=== PATIENT | female | born 1950 | race Caucasian/White ===

== ENCOUNTER 2016-09-20 07:13 | Day surgery (SDC) | payer OTHER, MEDICAID ==
[2016-09-20] MEDS ORDERED: D5 LR 1000 ML 1,000 ML IV ONE (07:20)
[2016-09-20] MEDS ORDERED: DIPRIVAN VIAL 20 ML ONE (09:16)
[2016-09-20 10:02] VITALS: BP 147/77
== END 2016-09-20 10:06 | disposition home or self-care (01) ==
LOC: SURG1 07:13
PROVIDERS: ATTEND Internal Medicine Gastroenterology
PROC: 0DJD8ZZ Inspection of Lower Intestinal Tract, Via Natural or Artificial Opening Endoscopic (ICD-10-PCS; principal; 2016-09-20 08:30)
PROC: 0DBL8ZX Excision of Transverse Colon, Via Natural or Artificial Opening Endoscopic, Diagnostic (ICD-10-PCS; principal; 2016-09-20 08:30)
DX: Z12.11 Encounter for screening for malignant neoplasm of colon (principal); R19.4 Change in bowel habit; K64.8 Other hemorrhoids; K57.30 Diverticulosis of large intestine without perforation or abscess without bleeding; K63.5 Polyp of colon; D12.3 Benign neoplasm of transverse colon
CPT/HCPCS: A4217; J3490; J7120

== ENCOUNTER → 2016-12-21 | Outpatient (CLI) | payer OTHER, MEDICAID ==
[2016-12-27 07:16] LABS: MAGNESIUM RBC 2.2 mmol/L (1.5-3.1)
== END ==
LOC: LAB 11:44
PROVIDERS: ATTEND Obstetrics & Gynecology Obstetrics
DX: M62.838 Other muscle spasm (principal)
CPT/HCPCS: 36415; 82330; 82728; 83735

== ENCOUNTER → 2016-12-25 | Outpatient (CLI) | payer OTHER, MEDICAID ==
--- NOTE | 2016-12-25 13:16 | MG ---
HISTORY: SCREENING Comparison: December 06, 2015 FINDINGS: Bilateral CC and MLO projections of the right and left breast were obtained. Scattered fibroglandul ar tissue is seen to be present. No significant architectural distortion, mass or clustered microca lcifications can be observed to suggest malignancy. No skin thickening or nipple retraction is appr eciated. No pathological lymphadenopathy can be identified. Benign-appearing calcifications scatte red throughout the right and left breasts are observed. IMPRESSION: NO RADIOGRAPHIC EVIDENCE OF MALIGNANCY. ACR CATEGORY 2 - benign findings. FOLLOW-UP EXAM 1 YEAR. Diagnostic CAD was utilized and reviewed. * 0 (ZERO) - ASSESSMENT INCOMPLETE; ADDITIONAL IMAGING IS NEEDED. * 1/ (ONE) - NEGATIVE. * 2/II (TWO) - BENIGN FINDINGS. * 3/III (THREE) - PROBABLY BENIGN FINDING; SHORT INTERVAL FOLLOW-UP SUGGESTED. * 4/IV (FOUR) - SUSPICIOUS ABNORMALITY; BIOPSY SHOULD BE CONSIDERED. * 5/V - HIGHLY SUSPICIOUS OF MALIGNANCY; BIOPSY SHOULD BE PERFORMED. A NEGATIVE X-RAY REPORT SHOULD NOT DELAY BIOPSY IF A DOMINANT OR CLINICALLY SUSPICIOUS MASS IS PRESENT; 4 TO 8 PERCENT OF CANCERS ARE NOT IDENTIFIED BY X-RAY. A NEG ATIVE REPORT MAY REINFORCE THE CLINICAL IMPRESSION. ADENOSIS AND DENSE BREASTS MAY OBSCURE AN UNDER LYING NEOPLASM. Reported By:
== END ==
LOC: RAD 09:50
PROVIDERS: ATTEND Obstetrics & Gynecology Obstetrics
DX: Z12.31 Encounter for screening mammogram for malignant neoplasm of breast (principal)
CPT/HCPCS: 77067

== ENCOUNTER → 2016-12-28 | Outpatient (CLI) | payer OTHER, MEDICAID | LOC: LAB 10:10 | PROVIDERS: ATTEND Obstetrics & Gynecology Obstetrics | DX: E83.52 Hypercalcemia (principal) | CPT/HCPCS: 36415; 82310; 83970 ==

== ENCOUNTER 2017-01-11 08:23 | Emergency (ER) | payer OTHER, MEDICAID ==
[2017-01-11 08:53] VITALS: BMI 33.8
--- NOTE | 2017-01-11 09:44 | DR.GENAD ---
HPI - PCP Primary Care Physician: RAUL - HPI Comment HPI Comment: NO FEVER OR DYSURIA. WORSE TODAY. NO FEVER OR DYSURIA. - Complaint/Symptoms Chief Complaint Doctors Comments: ABDOMINAL PAIN, UPPER ABDOMEN WITH NAUSEA TIMES 4 DAYS. Chief Complaint:: SICK ON STOMACH SINCE ATE SOME PEANUTS. FEELS NAUSEATED WITH NO VOMITING. Self Treatment fo Chief Complaint: TOOK OTC LAXATIVE AND HAS HAD ABOUT 4 BM. - Nurses notes reviewed Nurses Notes Review: Yes - Source History Provided: Patient - Mode of Arrival Mode of Arrival: Ambulatory - Timing Onset of Chief Complaint: 01/07/17 Came on: Suddenly - Duration Duration: Constant Duration: Days - Severity Severity: Moderate PMH - PMH Past Medical History: Yes Past Medical History: Arthritis, Asthma, Diabetes, Dyslipidemia, Hypertension Past Surgical History: Yes Past Surgical History Comment: CATARACTS, CARPAL TUNNEL, RIGHT BREASE - Family History History of Family Medical Conditions: Yes Family Medical History: Diabetes Mellitus - Social History Alcohol Use: None Do you use any recreational Drugs:: No Lives With: Family Lives Where: Home - infectious screening In the last 2 months have you had wt loss of >10#?: NO Have you had fever, night sweats or hemotysis?: No Have you traveled outside the country in the last 6 months?: No Isolation: Standard ROS - Review of Systems Constitutional: Loss of Appetite. negative: Chills, Fever, Weakness, Fatigue Eyes: No Symptoms Reported. negative: Eye Pain, Discharge ENTM: No Symptoms Reported. negative: Ear Pain, Nose Discharge, Nose Congestion , Throat Pain Respiratoy: No Symptoms Reported. negative: Productive Cough, Non-Productive Cough, Short of Breath, Wheezing, Hemoptysis Cardiovascular: No Symptoms Reported. negative: Chest Pain, Edema, Palpitations Gastrointestinal/Abdominal: Abdominal Pain, Nausea Genitourinary: No Symptoms Reported. negative: Dysuria, Frequency, Hematuria Neurological: Weakness. negative: Headache, Dizziness Musculoskeletal: Muscle Pain Integumentary: Dryness Hematologic/Lymphatic: No Symptoms Reported Endocrine: No Symptoms Reported All Other Systems: Reviewed and Negative PE - Vital Signs Vitals: Temperature 98.4 F Pulse Rate 64 Respiratory Rate 20 Blood Pressure 141/80 O2 Sat by Pulse Oximetry 100 - General Limitations: No Limitations General Appearance: Alert - Head Head Exam: Normal Inspection - Eyes Eye exam: Normal Appearance - ENT ENT Exam: Normal External Ear Exam External Ear Exam: Normal External Inspection TM/Canal Exam: Bilateral Normal Mouth Exam: Normal Inspection Throat Exam: Normal Inspection - Neck Neck Exam: Trachea Midline - Chest Chest Inspection: Symmetric Chest Wall Rise - Respiratory Respiratory Exam: Normal Lung Sounds Bilat Respiratory Exam: Bilateral Clear to Auscultation - Cardiovascular Cardiovascular Exam: Regular Rate, Normal Rhythm, Normal Heart Sounds - Abdominal Exam Abdominal Exam: Normal Bowel Sounds, Soft, Tenderness Abdominal Tenderness: RUQ, LUQ, Epigastrium, Moderate - Extremities Extremities Exam: Normal Inspection - Back Back Exam: Normal Inspection - Neurologic Neurological Exam: Alert, Oriented X3 - Psychiatric Psychiatric Exam: Normal Affect, Normal Mood - Skin Skin Exam: Normal Color MDM - Differential Diagnosis Differential Diagnosis: ABDOMINAL PAIN, BOWEL OBSTRUCTION, CHOLECYSTITIS, UTI Course - Treatment Treatment: SEE ORDERS - Consultation Consultation Comments: DISCUSS PATIENT WITH DR. CARTER. HE WILL ADMIT PATIENT. - Education/Counseling Education/Counseling: Patient, Education Educated On: Treatment, Diagnosis ROR - Labs Reviewed Laboratory Results Reviewed?: Yes Result Diagrams: 01/11/17 10:00 01/11/17 10:00 Laboratory: WBC 4.6 X10^3/uL (3.6-10.0) 01/11/17 10:00 RBC 4.84 X10^6/uL (3.5-5.4) 01/11/17 10:00 Hgb 14.0 g/dL (12.0-16.0) 01/11/17 10:00 Hct 41.6 % (36.0-47.0) 01/11/17 10:00 MCV 86.0 fL (80.0-100.0) 01/11/17 10:00 MCH 29.0 pg (27.0-34.0) 01/11/17 10:00 MCHC 33.7 g/dL (33.0-35.0) 01/11/17 10:00 RDW 14.6 % (11.6-16.5) 01/11/17 10:00 Plt Count 243 X10^3/uL (150.0-450.0) 01/11/17 10:00 MPV 8.1 fL (7.4-11.0) 01/11/17 10:00 Neut % 37.4 % (42.0-75.0) L 01/11/17 10:00 Lymph % 51.1 % (21.0-51.0) H 01/11/17 10:00 [place] % 8.3 % (0.0-13.0) 01/11/17 10:00 Eos % 1.9 % (0.9-2.9) 01/11/17 10:00 Baso % 1.3 % (0.2-1.0) H 01/11/17 10:00 Neut # 1.7 x10^3/uL (2.2-4.8) L 01/11/17 10:00 Lymph # 2.4 X10^3/uL (1.3-2.9) 01/11/17 10:00 [place] # 0.4 x10^3/uL (0.3-0.8) 01/11/17 10:00 Eos # 0.1 x10^3/uL (0.0-0.2) 01/11/17 10:00 Baso # 0.1 X10^3/uL (0.0-0.1) 01/11/17 10:00 Absolute Nucleated RBC 0.2 /100WBC 01/11/17 10:00 Sodium 140 mmol/L (136-145) 01/11/17 10:00 Corrected Sodium 140 mmol/L (136-145) 01/11/17 10:00 Potassium 3.8 mmol/L (3.5-5.1) 01/11/17 10:00 Chloride 103 mmol/L (98-107) 01/11/17 10:00 Carbon Dioxide 27.6 mmol/L (21-32) 01/11/17 10:00 BUN 13 mg/dL (7-18) 01/11/17 10:00 Creatinine 0.79 mg/dL (0.55-1.02) 01/11/17 10:00 Est GFR (MDRD) Af Amer > 60 (>60) 01/11/17 10:00 Est GFR (MDRD) Non-Af > 60 (>60) 01/11/17 10:00 Glucose 114 mg/dL (65-99) H 01/11/17 10:00 Calcium 9.0 mg/dL (8.5-10.1) 01/11/17 10:00 Corrected Calcium TNP 01/11/17 10:00 Total Bilirubin 0.30 mg/dL (0.2-1.0) 01/11/17 10:00 AST 25 Units/L (15-37) 01/11/17 10:00 ALT 25 Units/L (12-78) 01/11/17 10:00 Alkaline Phosphatase 75 Units/L (46-116) 01/11/17 10:00 Total Protein 7.4 g/dL (6.4-8.2) 01/11/17 10:00 Albumin 3.5 g/dL (3.4-5.0) 01/11/17 10:00 Globulin 3.9 g/dL (2.5-4.5) 01/11/17 10:00 Albumin/Globulin Ratio 0.9 Ratio (1.1-2.1) L 01/11/17 10:00 Triglycerides 343 mg/dL (0-150) H 01/11/17 10:00 Cholesterol 259 mg/dL (0-200) H 01/11/17 10:00 LDL Cholesterol, Calc 130 mg/dL (0-100) H 01/11/17 10:00 HDL Cholesterol 60 mg/dL (40-60) 01/11/17 10:00 Cholesterol/HDL Ratio 4.3 (0.0-5.0) 01/11/17 10:00 Amylase 271 Units/L (25-115) H 01/11/17 10:00 Lipase 1211 Units/L (73-393) H 01/11/17 10:00 Specimen Type Clean catch urine 01/11/17 09:56 Urine Color Yellow (YELLOW) 01/11/17 09:56 Urine Appearance Slightly hazy (CLEAR) 01/11/17 09:56 Urine pH 5.0 (5.0 - 8.0) 01/11/17 09:56 Ur Specific [place] 1.025 (1.000-1.030) 01/11/17 09:56 Urine Protein 1+ (NEGATIVE) 01/11/17 09:56 Urine Glucose (UA) Negative (NEGATIVE) 01/11/17 09:56 Urine Ketones Negative (NEGATIVE) 01/11/17 09:56 Urine Occult Blood 2+ (NEGATIVE) 01/11/17 09:56 Urine Nitrite Negative (NEGATIVE) 01/11/17 09:56 Urine Bilirubin Negative (NEGATIVE) 01/11/17 09:56 Urine Urobilinogen Normal (NORMAL) 01/11/17 09:56 Ur Leukocyte Esterase 1+ (NEGATIVE) 01/11/17 09:56 Urine RBC 0 - 1 /HPF (NEGATIVE) 01/11/17 09:56 Urine WBC 1 - 2 /HPF (NEGATIVE) 01/11/17 09:56 Ur Squamous Epith Cells Few /HPF (NEGATIVE) 01/11/17 09:56 Urine Bacteria Trace /HPF (NEGATIVE) 01/11/17 09:56 Ur Culture Indicated? No/not indicated 01/11/17 09:56 - XRAY XRAY Interpreted by: Radiologist XRAY Findings: REPORT DISCUSS WITH PATIENT - Diagnosis Discharge Problem: Acute pancreatitis, Abdominal pain, Diverticulosis, Kidney stone on right side - Discharge Plan Disposition: ADMITTED INPATIENT Condition: Stable - Follow ups/Referrals - Instructions
[2017-01-11 10:10] LABS: APPEARANCE,URINE SLIGHTLY HAZY (CLEAR); BILIRUBIN,URINE NEGATIVE (NEGATIVE); BLOOD/HEMOGLOBIN,URINE 2+ (NEGATIVE); COLOR,URINE YELLOW (YELLOW); GLUCOSE, URINE NEGATIVE (NEGATIVE); KETONES,URINE NEGATIVE (NEGATIVE); LEUKOCYTE ESTERASE ,URINE 1+ (NEGATIVE); NITRITES,URINE NEGATIVE (NEGATIVE); PROTEIN,URINE 1+ (NEGATIVE); UROBILINOGEN,URINE NORMAL (NORMAL)
[2017-01-11 10:14] LABS: BASOPHILS # (AUTO) 0.1 X10^3/uL (0.0-0.1); BASOPHILS % (AUTO) 1.3 % (0.2-1.0); EOSINOPHILS # (AUTO) 0.1 x10^3/uL (0.0-0.2); EOSINOPHILS % (AUTO) 1.9 % (0.9-2.9); HEMATOCRIT 41.6 % (36.0-47.0); LYMPHOCYTES # (AUTO) 2.4 X10^3/uL (1.3-2.9); LYMPHOCYTES % (AUTO) 51.1 % (21.0-51.0); MEAN CORPUSCULAR HGB CONC 33.7 g/dL (33.0-35.0); MEAN PLATELET VOLUME 8.1 fL (7.4-11.0); MONOCYTES # (AUTO) 0.4 x10^3/uL (0.3-0.8); MONOCYTES % (AUTO) 8.3 % (0.0-13.0); NEUTROPHILS # (AUTO) 1.7 x10^3/uL (2.2-4.8); NEUTROPHILS % (AUTO) 37.4 % (42.0-75.0); PLATELET COUNT 243 X10^3/uL (150.0-450.0); RED BLOOD COUNT 4.84 X10^6/uL (3.5-5.4); RED CELL DISTRIBUTION WIDTH 14.6 % (11.6-16.5); WHITE BLOOD COUNT 4.6 X10^3/uL (3.6-10.0)
[2017-01-11 10:15] LABS: RBC,URINE 0 - 1 /HPF (NEGATIVE)
[2017-01-11 10:16] LABS: BACTERIA,URINE TRACE /HPF (NEGATIVE); SQUAMOUS EPITHELIAL CELL,UR FEW /HPF (NEGATIVE)
[2017-01-11 10:20] LABS: BLOOD UREA NITROGEN 13 mg/dL (7-18); CARBON DIOXIDE 27.6 mmol/L (21-32); CHLORIDE 103 mmol/L (98-107); COR NA(FOR HYPERGLY) 140 mmol/L (136-145); CREATININE 0.79 mg/dL (0.55-1.02); GLUCOSE 114 mg/dL (65-99); SODIUM 140 mmol/L (136-145); eGFR BLACK RACES > 60 (>60); eGFR NON BLACK RACES > 60 (>60)
[2017-01-11 10:48] LABS: ALANINE AMINOTRANSFERASE 25 Units/L (12-78); ALBUMIN 3.5 g/dL (3.4-5.0); ALKALINE PHOSPHATASE 75 Units/L (46-116); AMYLASE 271 Units/L (25-115); ASPARTATE AMINO TRANSFERASE 25 Units/L (15-37); LIPASE 1211 Units/L (73-393); TOTAL PROTEIN 7.4 g/dL (6.4-8.2)
--- NOTE | 2017-01-11 11:31 | CT ---
CT abdomen and pelvis without contrast Indication: Abdominal pain Comparison: None available Technique: Multiple axial images of the abdomen and pelvis were obtained from the lung bases to the pubic symph ysis without the administration of IV contrast. Radiation dose reduction techniques were performed utilizing adjustment for MA/kVP based on patient body size. Findings: The lung bases demonstrate approximate 2 mm subpleural pulmonary nodule within the lingula on image 2. Given the limitations of a noncontrast examination no focal hepatic lesion identified. The gallbl adder, bile ducts, spleen, pancreas and adrenal glands are normal. Neither kidney demonstrates evide nce of hydronephrosis or mass. Punctate nonobstructing stone is present within the lower pole of the right kidney on axial image 35. Upper GI tract is without evidence of mass or obstruction however t here is mild inflammatory change noted within loops of left lower quadrant small bowel with mild haz iness of the mesenteric fat and mesenteric vascular congestion. Urinary bladder is normal. No pelvic mass identified. Suspected cyst within the right adnexa. The rectum is unremarkable. Scattered dive rticular noted throughout the colon without evidence of acute diverticulitis. The appendix is normal . No pelvic free fluid or adenopathy. Abdominal aorta is normal in caliber with scattered calcified atherosclerotic disease. Small fat containing inguinal hernia is noted on the left. No acute osseous abnormality. Impression: 1.Mild bowel wall thickening and surrounding inflammatory change within the left is nonspecific borden anna suggest a mild enteritis. No evidence of obstruction. 2. Diffuse colonic diverticulosis without evidence of acute diverticulitis or colonic mass. 3. Punctate nonobstructing stone within the lower pole the right kidney. Reported By:
[2017-01-11 12:05] LABS: CHOL/HDL RATIO 4.3 (0.0-5.0)
[2017-01-11] MEDS ORDERED: ZOFRAN INJ 4 MG VIAL IVP PRN (12:27)
[2017-01-11] MEDS ORDERED: DEMEROL INJ IVP PRN (12:27)
[2017-01-11] MEDS: PEPCID 20 MG IV PREMIX* 20 MG/50 ML BAG IV SCH ×2 (14:47→20:56)
[2017-01-11] MEDS: NS 1000 ML 1,000 ML IV SCH (14:47)
[2017-01-12] MEDS: NS 1000 ML 1,000 ML IV SCH ×3 (02:20→21:22)
[2017-01-12 06:24] LABS: BASOPHILS # (AUTO) 0.1 X10^3/uL (0.0-0.1); BASOPHILS % (AUTO) 1.3 % (0.2-1.0); EOSINOPHILS # (AUTO) 0.1 x10^3/uL (0.0-0.2); EOSINOPHILS % (AUTO) 1.5 % (0.9-2.9); HEMATOCRIT 40.3 % (36.0-47.0); HEMOGLOBIN 13.5 g/dL (12.0-16.0); LYMPHOCYTES # (AUTO) 2.8 X10^3/uL (1.3-2.9); LYMPHOCYTES % (AUTO) 61.8 % (21.0-51.0); MEAN CORPUSCULAR HEMOGLOBIN 28.6 pg (27.0-34.0); MEAN CORPUSCULAR HGB CONC 33.4 g/dL (33.0-35.0); MEAN CORPUSCULAR VOLUME 85.8 fL (80.0-100.0); MEAN PLATELET VOLUME 8.4 fL (7.4-11.0); MONOCYTES # (AUTO) 0.4 x10^3/uL (0.3-0.8); MONOCYTES % (AUTO) 8.6 % (0.0-13.0); NEUTROPHILS # (AUTO) 1.2 x10^3/uL (2.2-4.8); NEUTROPHILS % (AUTO) 26.8 % (42.0-75.0); PLATELET COUNT 216 X10^3/uL (150.0-450.0); RED CELL DISTRIBUTION WIDTH 14.9 % (11.6-16.5); WHITE BLOOD COUNT 4.6 X10^3/uL (3.6-10.0)
[2017-01-12 06:31] LABS: ALANINE AMINOTRANSFERASE 20 Units/L (12-78); ALKALINE PHOSPHATASE 62 Units/L (46-116); AMYLASE 94 Units/L (25-115); ASPARTATE AMINO TRANSFERASE 20 Units/L (15-37); BLOOD UREA NITROGEN 7 mg/dL (7-18); CALCIUM 9.2 mg/dL (8.5-10.1); CARBON DIOXIDE 28.6 mmol/L (21-32); CHLORIDE 109 mmol/L (98-107); GLUCOSE 110 mg/dL (65-99); LIPASE 202 Units/L (73-393); SODIUM 144 mmol/L (136-145); TOTAL PROTEIN 6.4 g/dL (6.4-8.2); eGFR BLACK RACES > 60 (>60); eGFR NON BLACK RACES > 60 (>60)
[2017-01-12 07:25] LABS: BAND NEUTROPHILS % 1 % (0-10); PLATELET MORPHOLOGY COMMENT NORMAL (NORMAL)
[2017-01-12] MEDS ORDERED: LOPRESSOR TAB 50 MG PO SCH (09:00)
--- NOTE | 2017-01-12 10:14 | DR.H&P ---
H&P - History & Physical for Day of: H&P Date: 01/11/17 - Chief Complaint Chief Complaint: Abominal pain and vomiting - Allergies Allergies/Adverse Reactions: Allergies Allergy/AdvReac Type Severity Reaction Status Date / Time aspirin Allergy Verified 01/11/17 08:44 - History of Present Illness History of Present Illness: Nguyen is a 66 yo female who presented tot he emergency room with complaints of abdominal pain and nausea and vomting that she states started after eating peanuts. A ct of the abdomen was performed which showed changed consistent of enteritis and diverticulosis. Patient has an elevated amylase an lipase. Pateint admitted for futher observation and started IV antiemetic and pain medications. - Past Medical History Past Medical History: Arthritis, Asthma, Diabetes, Dyslipidemia, Hypertension - Past Surgical History Surgical History: Other - Family History Family Medical History: Cancer, Coronary Artery Disease, Hypertension - Social History Does patient currently use any type of tobacco product: No Have you used tobacco products in the last 12 months: No Type of Tobacco Use: None Does any household member use tobacco: No Alcohol Use: None Drug Use: None - Review of Systems Constitutional: No Symptoms Reported Eyes: No Symptoms Reported ENT: No Symptoms Reported Respiratory: No Symptoms Reported Cardiovascular: No Symptoms Reported Gastrointestinal: Nausea, Vomiting, Abdominal Pain Genitourinary: No Symptoms Reported Musculoskeletal: No Symptoms Reported Skin: No Symptoms Reported Neurological: No Symptoms Reported - Physical Exam Vital Signs: Temperature 98.1 F Pulse Rate [Right Brachial] 63 Respiratory Rate 18 Blood Pressure [Right Arm] 140/85 O2 Sat by Pulse Oximetry 96 Oriented: Normal Eyes: Normal Ear: Normal Nose: Normal Throat: Normal Respiratory: Clear Throughout Cardiovascular: Normal : Normal Auscultation: Bowel Sounds: Normal Palpation: Normal Tenderness: Diffuse Skin: Normal Musculoskeletal: Normal Psychiatric: Normal Mood Description: Calm, Appropriate Affect: Normal Speech Pattern: Clear, Appropriate - Assessment/Plan (1) Abdominal pain Qualifiers: Abdominal location: A Status: Acute Plan: pepcid and demerol (2) Diverticulosis Qualifiers: Diverticulosis site: D Diverticulosis bleeding: D Status: Acute (3) Gastroenteritis Status: Acute Plan: iv antiemetics
[2017-01-12] MEDS ORDERED: PATIENT'S HOME MEDICATION (Metformin Hcl [Metformin Hcl] 1 TAB) PO SCH (10:30)
[2017-01-12] MEDS ORDERED: PATIENT'S HOME MEDICATION (Aspirin [Aspirin] 81 MG) PO SCH (10:30)
[2017-01-12] MEDS: PEPCID 20 MG IV PREMIX* 20 MG/50 ML BAG IV SCH ×2 (10:38→21:22)
[2017-01-12] MEDS ORDERED: GLUCOPHAGE ONE (16:46)
[2017-01-12] MEDS: GLUCOPHAGE PO SCH (16:53)
[2017-01-12] MEDS ORDERED: NORMODYNE INJ 20 MG VIAL IVP PRN (20:13)
[2017-01-12] MEDS: LOPRESSOR TAB 50 MG PO SCH (21:22)
[2017-01-13] MEDS ORDERED: GLUCOPHAGE ONE (06:05)
[2017-01-13] MEDS: GLUCOPHAGE PO SCH (06:06)
[2017-01-13] MEDS: NS 1000 ML 1,000 ML IV SCH ×2 (06:08→15:05)
[2017-01-13 06:21] LABS: BASOPHILS % (AUTO) 0.9 % (0.2-1.0); EOSINOPHILS # (AUTO) 0.1 x10^3/uL (0.0-0.2); EOSINOPHILS % (AUTO) 1.8 % (0.9-2.9); HEMATOCRIT 40.4 % (36.0-47.0); HEMOGLOBIN 13.6 g/dL (12.0-16.0); LYMPHOCYTES # (AUTO) 2.9 X10^3/uL (1.3-2.9); LYMPHOCYTES % (AUTO) 59.1 % (21.0-51.0); MEAN CORPUSCULAR HEMOGLOBIN 28.8 pg (27.0-34.0); MEAN CORPUSCULAR HGB CONC 33.7 g/dL (33.0-35.0); MEAN CORPUSCULAR VOLUME 85.4 fL (80.0-100.0); MEAN PLATELET VOLUME 8.6 fL (7.4-11.0); MONOCYTES # (AUTO) 0.4 x10^3/uL (0.3-0.8); MONOCYTES % (AUTO) 8.4 % (0.0-13.0); NEUTROPHILS # (AUTO) 1.5 x10^3/uL (2.2-4.8); NEUTROPHILS % (AUTO) 29.8 % (42.0-75.0); PLATELET COUNT 206 X10^3/uL (150.0-450.0); RED BLOOD COUNT 4.73 X10^6/uL (3.5-5.4); RED CELL DISTRIBUTION WIDTH 14.5 % (11.6-16.5)
[2017-01-13 06:28] LABS: ALANINE AMINOTRANSFERASE 23 Units/L (12-78); ALBUMIN 3.2 g/dL (3.4-5.0); ALKALINE PHOSPHATASE 62 Units/L (46-116); AMYLASE 84 Units/L (25-115); ASPARTATE AMINO TRANSFERASE 17 Units/L (15-37); BLOOD UREA NITROGEN 7 mg/dL (7-18); CALCIUM 9.5 mg/dL (8.5-10.1); CARBON DIOXIDE 30.7 mmol/L (21-32); CHLORIDE 107 mmol/L (98-107); COR CA(FOR HYPOALB) 10.1 mg/dL (8.5-10.1); CREATININE 0.87 mg/dL (0.55-1.02); GLUCOSE 100 mg/dL (65-99); LIPASE 193 Units/L (73-393); SODIUM 143 mmol/L (136-145); TOTAL PROTEIN 6.7 g/dL (6.4-8.2); eGFR BLACK RACES > 60 (>60); eGFR NON BLACK RACES > 60 (>60)
[2017-01-13] MEDS ORDERED: ASPIRIN EC 81 MG PO SCH (09:00)
[2017-01-13] MEDS: PEPCID 20 MG IV PREMIX* 20 MG/50 ML BAG IV SCH (09:02)
[2017-01-13] MEDS: LOPRESSOR TAB 50 MG PO SCH (09:02)
[2017-01-13] MEDS ORDERED: COLACE CAP 100 MG PO ONE (11:43)
[2017-01-13] MEDS ORDERED: CITROMA PO ONE (11:43)
[2017-01-13 17:22] VITALS: BP 130/77
== END 2017-01-13 16:25 | disposition home or self-care (01) | DRG 440 ==
LOC: ER 08:58 → MED/SURG 12:15
PROVIDERS: ADMIT Obstetrics & Gynecology Obstetrics; ATTEND Obstetrics & Gynecology Obstetrics
DX: K85.80 Other acute pancreatitis without necrosis or infection (principal); R10.84 Generalized abdominal pain; R11.2 Nausea with vomiting, unspecified; E78.2 Mixed hyperlipidemia; I10 Essential (primary) hypertension; N20.0 Calculus of kidney; K57.90 Diverticulosis of intestine, part unspecified, without perforation or abscess without bleeding; K52.89 Other specified noninfective gastroenteritis and colitis; R74.8 Abnormal levels of other serum enzymes
CPT/HCPCS: 36415; 74176; 80053; 80061; 81001; 82150; 83690; 85025; 93005; 93010; 96365; 99284; A4222; S0028; G0378; J3490

== ENCOUNTER → 2017-01-21 | Outpatient (CLI) | payer OTHER, MEDICAID ==
[2017-01-13 17:22] VITALS: BP 130/77
[2017-01-21 13:51] LABS: AMYLASE 96 Units/L (25-115); LIPASE 235 Units/L (73-393)
== END ==
LOC: LAB 12:50
PROVIDERS: ATTEND Obstetrics & Gynecology Obstetrics
DX: K85.80 Other acute pancreatitis without necrosis or infection (principal)
CPT/HCPCS: 36415; 82150; 83690

== ENCOUNTER 2017-06-05 18:21 | Emergency (ER) | payer OTHER, MEDICAID ==
[2017-06-05 18:29] VITALS: BP 140/80; BMI 30.9
--- NOTE | 2017-06-05 18:34 | DR.GENAD ---
HPI - PCP Primary Care Physician: RAUL - HPI Comment HPI Comment: FEEL SLIGHTLY WEAK AND RUNNING FEVER. TOOK IMMODIUM TODAY. SLIGHT DYSURIA. ANOREXIC. - Complaint/Symptoms Chief Complaint Doctors Comments: ABDOMINAL PAIN, N/V/D TIMES 2 DAYS. Chief Complaint:: VOMITING AND DIAHRREA X 2 DAYS Self Treatment fo Chief Complaint: BENDADRYL; IMMODIUM AD - Nurses notes reviewed Nurses Notes Review: Yes - Source History Provided: Patient - Mode of Arrival Mode of Arrival: Ambulatory - Timing Onset of Chief Complaint: 06/04/17 Came on: Suddenly - Duration Duration: Constant Duration: Days - Severity Severity: Moderate PMH - PMH Past Medical History: No Past Medical History: Diabetes, Hypertension Past Surgical History: No Surgical History: Other - Family History History of Family Medical Conditions: No Family Medical History: Cancer, Coronary Artery Disease, Hypertension - Social History Alcohol Use: None Do you use any recreational Drugs:: No Lives With: Alone Lives Where: Home - infectious screening In the last 2 months have you had wt loss of >10#?: NO Have you had fever, night sweats or hemotysis?: No Have you traveled outside the country in the last 6 months?: No Isolation: Standard ROS - Review of Systems Constitutional: Fever, Weakness, Fatigue. negative: Chills Eyes: negative: Eye Pain, Discharge ENTM: negative: Ear Pain, Nose Discharge, Nose Congestion, Throat Pain Respiratoy: negative: Productive Cough, Non-Productive Cough, Short of Breath, Wheezing, Hemoptysis Cardiovascular: negative: Chest Pain, Edema Gastrointestinal/Abdominal: Abdominal Pain, Diarrhea, Nausea, Vomiting Genitourinary: Dysuria Neurological: Weakness. negative: Headache Musculoskeletal: Muscle Pain Integumentary: Dryness Hematologic/Lymphatic: No Symptoms Reported Endocrine: No Symptoms Reported All Other Systems: Reviewed and Negative PE - Vital Signs Vitals: Temperature 100.8 F Pulse Rate 108 Respiratory Rate 22 Blood Pressure [Right Arm] 130/77 Blood Pressure 140/80 O2 Sat by Pulse Oximetry 100 - General Limitations: No Limitations General Appearance: Alert - Head Head Exam: Normal Inspection - Eyes Eye exam: Normal Appearance - ENT ENT Exam: Normal External Ear Exam External Ear Exam: Normal External Inspection TM/Canal Exam: Bilateral Normal Nose Exam: Normal Nose Exam Mouth Exam: Normal Inspection Throat Exam: Normal Inspection - Neck Neck Exam: Trachea Midline - Chest Chest Inspection: Symmetric Chest Wall Rise - Respiratory Respiratory Exam: Normal Lung Sounds Bilat Respiratory Exam: Bilateral Clear to Auscultation - Cardiovascular Cardiovascular Exam: Regular Rate, Normal Rhythm, Normal Heart Sounds - Abdominal Exam Abdominal Exam: Normal Bowel Sounds, Soft, Tenderness Abdominal Tenderness: Diffuse, Moderate - Extremities Extremities Exam: Normal Inspection - Back Back Exam: Normal Inspection - Neurologic Neurological Exam: Alert, Oriented X3 - Psychiatric Psychiatric Exam: Normal Affect, Normal Mood - Skin Skin Exam: Normal Color MDM - Differential Diagnosis Differential Diagnosis: ABDOMINAL PAIN, GASTROENTERITIS, UTI Course - Treatment Treatment: SEE ORDERS. - Education/Counseling Education/Counseling: Patient, Education Educated On: Diagnosis, Needs for Follow Up ROR - Labs Reviewed Laboratory Results Reviewed?: Yes Result Diagrams: 06/05/17 19:24 06/05/17 19:24 Laboratory: WBC 4.8 X10^3/uL (3.6-10.0) 06/05/17 19:24 RBC 5.42 X10^6/uL (3.5-5.4) H 06/05/17 19:24 Hgb 15.2 g/dL (12.0-16.0) 06/05/17 19:24 Hct 45.8 % (36.0-47.0) 06/05/17 19:24 MCV 84.5 fL (80.0-100.0) 06/05/17 19:24 MCH 28.0 pg (27.0-34.0) 06/05/17 19:24 MCHC 33.2 g/dL (33.0-35.0) 06/05/17 19:24 RDW 15.1 % (11.6-16.5) 06/05/17 19:24 Plt Count 239 X10^3/uL (150.0-450.0) 06/05/17 19:24 MPV 8.2 fL (7.4-11.0) 06/05/17 19:24 Neut % 85.0 % (42.0-75.0) H 06/05/17 19:24 Lymph % 8.0 % (21.0-51.0) L 06/05/17 19:24 [place] % 6.6 % (0.0-13.0) 06/05/17 19:24 Eos % 0.1 % (0.9-2.9) L 06/05/17 19:24 Baso % 0.3 % (0.2-1.0) 06/05/17 19:24 Neut # 4.1 x10^3/uL (2.2-4.8) 06/05/17 19:24 Lymph # 0.4 X10^3/uL (1.3-2.9) L 06/05/17 19:24 [place] # 0.3 x10^3/uL (0.3-0.8) 06/05/17 19:24 Eos # 0.0 x10^3/uL (0.0-0.2) 06/05/17 19:24 Baso # 0.0 X10^3/uL (0.0-0.1) 06/05/17 19:24 Absolute Nucleated RBC 0.1 /100WBC 06/05/17 19:24 Sodium 139 mmol/L (136-145) 06/05/17 19:24 Corrected Sodium 140 mmol/L (136-145) 06/05/17 19:24 Potassium 3.5 mmol/L (3.5-5.1) 06/05/17 19:24 Chloride 103 mmol/L (98-107) 06/05/17 19:24 Carbon Dioxide 26.1 mmol/L (21-32) 06/05/17 19:24 BUN 15 mg/dL (7-18) 06/05/17 19:24 Creatinine 1.16 mg/dL (0.55-1.02) H 06/05/17 19:24 Est GFR (MDRD) Af Amer 60 (>60) 06/05/17 19:24 Est GFR (MDRD) Non-Af 49 (>60) L 06/05/17 19:24 Glucose 145 mg/dL (65-99) H 06/05/17 19:24 Calcium 9.5 mg/dL (8.5-10.1) 06/05/17 19:24 Corrected Calcium TNP 06/05/17 19:24 Total Bilirubin 0.40 mg/dL (0.2-1.0) 06/05/17 19:24 AST 34 Units/L (15-37) 06/05/17 19:24 ALT 28 Units/L (12-78) 06/05/17 19:24 Alkaline Phosphatase 77 Units/L (46-116) 06/05/17 19:24 Total Protein 7.7 g/dL (6.4-8.2) 06/05/17 19:24 Albumin 3.6 g/dL (3.4-5.0) 06/05/17 19:24 Globulin 4.1 g/dL (2.5-4.5) 06/05/17 19:24 Albumin/Globulin Ratio 0.9 Ratio (1.1-2.1) L 06/05/17 19:24 Amylase 71 Units/L (25-115) 06/05/17 19:24 Lipase 125 Units/L (73-393) 06/05/17 19:24 Specimen Type Clean catch urine 06/05/17 19:50 Urine Color Yellow (YELLOW) 06/05/17 19:50 Urine Appearance Slightly hazy (CLEAR) 06/05/17 19:50 Urine pH 5.0 (5.0 - 8.0) 06/05/17 19:50 Ur Specific [place] 1.025 (1.000-1.030) 06/05/17 19:50 Urine Protein 2+ (NEGATIVE) 06/05/17 19:50 Urine Glucose (UA) 1+ (NEGATIVE) 06/05/17 19:50 Urine Ketones 1+ (NEGATIVE) 06/05/17 19:50 Urine Occult Blood 3+ (NEGATIVE) 06/05/17 19:50 Urine Nitrite Negative (NEGATIVE) 06/05/17 19:50 Urine Bilirubin Negative (NEGATIVE) 06/05/17 19:50 Urine Urobilinogen Normal (NORMAL) 06/05/17 19:50 Ur Leukocyte Esterase 1+ (NEGATIVE) 06/05/17 19:50 Urine RBC 10-12 /HPF (NEGATIVE) 06/05/17 19:50 Urine WBC 2-3 /HPF (NEGATIVE) 06/05/17 19:50 Ur Squamous Epith Cells Many /HPF (NEGATIVE) 06/05/17 19:50 Urine Bacteria 1+ /HPF (NEGATIVE) 06/05/17 19:50 Ur Culture Indicated? No/not indicated 06/05/17 19:50 - XRAY XRAY Interpreted by: Radiologist XRAY Findings: REPORT DISCUSS WITH PATIENT. - Diagnosis Discharge Problem: Gastroenteritis Abdominal pain Qualifiers: Abdominal location: generalized Qualified Code(s): R10.84 - Generalized abdominal pain UTI (urinary tract infection) Qualifiers: Urinary tract infection type: site unspecified Hematuria presence: with hematuria Qualified Code(s): N39.0 - Urinary tract infection, site not specified - Discharge Plan Disposition: 01 HOME, SELF-CARE Condition: Stable Prescriptions: Diphenoxylate/Atropine [Lomotil] 1 tab PO TID PRN #15 tab PRN Reason: Ondansetron [Zofran ODT 8 mg] 8 mg PO Q8H PRN #12 tab PRN Reason: Nausea/Vomiting Sulfamethoxazole-Trimethoprim [BACTRIM DS TAB 800/160 MG *] 1 tab PO BID #20 tab - Follow ups/Referrals Follow ups/Referrals: JUAN R CARTER [Primary Care Provider] - 3 days - Instructions Instructions: Viral Gastroenteritis, Adult, [id number], Urinary Tract Infection, Adult, [id number], Abdominal Pain, Adult, [id number]
--- NOTE | 2017-06-05 19:24 | RAD ---
HISTORY: Vomiting and diarrhea x2 days. Study: Acute abdominal series Comparison: CT abdomen/pelvis dated January 11, 2017. Findings: The trachea is midline. The cardiac silhouette is unremarkable. The lungs are clear without focal i nfiltrate or effusion. The bony thorax is unremarkable. Flat plate and upright evaluation of the abdomen demonstrates a nonspecific/nonobstructive bowel gas pattern with air and stool to the level of the rectum. No obvious free air. No pathological soft tis jos mass or calcification can be observed. The bony structures are grossly intact. IMPRESSION: 1. No acute cardiopulmonary disease. 2. No evidence for acute abdominal pathology identified. Reported By:
[2017-06-05 19:33] LABS: BASOPHILS % (AUTO) 0.3 % (0.2-1.0); EOSINOPHILS % (AUTO) 0.1 % (0.9-2.9); HEMATOCRIT 45.8 % (36.0-47.0); HEMOGLOBIN 15.2 g/dL (12.0-16.0); LYMPHOCYTES # (AUTO) 0.4 X10^3/uL (1.3-2.9); MEAN CORPUSCULAR HGB CONC 33.2 g/dL (33.0-35.0); MEAN CORPUSCULAR VOLUME 84.5 fL (80.0-100.0); MEAN PLATELET VOLUME 8.2 fL (7.4-11.0); MONOCYTES # (AUTO) 0.3 x10^3/uL (0.3-0.8); MONOCYTES % (AUTO) 6.6 % (0.0-13.0); NEUTROPHILS # (AUTO) 4.1 x10^3/uL (2.2-4.8); PLATELET COUNT 239 X10^3/uL (150.0-450.0); RED BLOOD COUNT 5.42 X10^6/uL (3.5-5.4); RED CELL DISTRIBUTION WIDTH 15.1 % (11.6-16.5); WHITE BLOOD COUNT 4.8 X10^3/uL (3.6-10.0)
[2017-06-05 19:44] LABS: ALANINE AMINOTRANSFERASE 28 Units/L (12-78); ALBUMIN 3.6 g/dL (3.4-5.0); ALKALINE PHOSPHATASE 77 Units/L (46-116); AMYLASE 71 Units/L (25-115); ASPARTATE AMINO TRANSFERASE 34 Units/L (15-37); BLOOD UREA NITROGEN 15 mg/dL (7-18); CALCIUM 9.5 mg/dL (8.5-10.1); CARBON DIOXIDE 26.1 mmol/L (21-32); CHLORIDE 103 mmol/L (98-107); COR NA(FOR HYPERGLY) 140 mmol/L (136-145); CREATININE 1.16 mg/dL (0.55-1.02); LIPASE 125 Units/L (73-393); SODIUM 139 mmol/L (136-145); TOTAL PROTEIN 7.7 g/dL (6.4-8.2); eGFR BLACK RACES 60 (>60); eGFR NON BLACK RACES 49 (>60)
[2017-06-05 19:57] LABS: BILIRUBIN,URINE NEGATIVE (NEGATIVE); BLOOD/HEMOGLOBIN,URINE 3+ (NEGATIVE); GLUCOSE, URINE 1+ (NEGATIVE); KETONES,URINE 1+ (NEGATIVE); LEUKOCYTE ESTERASE ,URINE 1+ (NEGATIVE); NITRITES,URINE NEGATIVE (NEGATIVE); PROTEIN,URINE 2+ (NEGATIVE); UROBILINOGEN,URINE NORMAL (NORMAL)
[2017-06-05 20:04] LABS: APPEARANCE,URINE SLIGHTLY HAZY (CLEAR); BACTERIA,URINE 1+ /HPF (NEGATIVE); COLOR,URINE YELLOW (YELLOW); SQUAMOUS EPITHELIAL CELL,UR MANY /HPF (NEGATIVE)
[2017-06-05] MEDS ORDERED: LOMOTIL PO ONE (20:26)
[2017-06-05] MEDS ORDERED: BACTRIM DS TAB PO ONE ×2 (20:29→20:40)
[2017-06-05] MEDS ORDERED: ZOFRAN TAB 4 MG PO ONE (20:29)
[2017-06-05] MEDS ORDERED: ZOFRAN TAB 4 MG ONE (20:40)
[2017-06-05] MEDS ORDERED: LOMOTIL ONE (20:41)
== END 2017-06-05 20:45 | disposition home or self-care (01) ==
LOC: ER 18:32
DX: K52.89 Other specified noninfective gastroenteritis and colitis (principal); R10.84 Generalized abdominal pain; N39.0 Urinary tract infection, site not specified
CPT/HCPCS: 36415; 74022; 80053; 81001; 82150; 83690; 85025; 99282; 99283; S0181

== ENCOUNTER → 2017-07-09 | Outpatient (CLI) | payer OTHER, MEDICAID ==
--- NOTE | 2017-07-09 12:37 | RAD ---
HISTORY: Low back pain, radiculopathy, left hip pain Study: Five views lumbar spine Comparison: None Findings: Normal alignment of the lumbar spine is maintained. Vertebral body heights are preserved. There is multilevel spondylosis present. There is degenerative disc space narrowing with associated endplate c hanges at L4-5 and L5-S1. There is multilevel facet arthropathy worse in the lower lumbar spine witho ut listhesis.No evidence for acute fracture or subluxation. Vascular calcifications are noted. The [place] rrounding soft tissues are otherwise unremarkable. IMPRESSION: 1. Multilevel lumbar degenerative changes as described. Reported By:
== END ==
LOC: RAD 11:02
PROVIDERS: ATTEND Obstetrics & Gynecology Obstetrics
DX: M54.16 Radiculopathy, lumbar region (principal)
CPT/HCPCS: 72110

== ENCOUNTER → 2017-07-11 | Outpatient (CLI) | payer OTHER, MEDICAID ==
--- NOTE | 2017-07-12 08:48 | MRI ---
MRI lumbar spine without contrast. Indication: Low back pain, left hip pain Comparison: Radiographs 07/09/2017. No previous lumbar MRI. Technique: Multiplanar multi sequence MR images of the lumbar spine were obtained without contrast. Findings: The lumbar spine alignment is normal. There is no evidence for acute fracture or suspicious marrow signal. The conus terminates at L1. The cauda equina is grossly unremarkable. Multilevel dege nerative changes are discussed on a level by level basis below. There are fairly symmetric degenerati ve changes of the visualized SI joints. The paravertebral soft tissues are unremarkable. T12-L1: Minimal bilateral facet arthropathy, without foraminal or canal narrowing. L1-2: Mild bilateral facet arthropathy. No foraminal or canal narrowing. L2-3: Mild circumferential disc bulge and bilateral facet arthropathy resulting in mild neural forami nal narrowing bilaterally, without significant spinal canal narrowing. L3-4: There is mild circumferential disc bulge with moderate bilateral facet arthropathy with ligamen jean paul flavum thickening resulting in [id number] neural foraminal narrowing bilaterally and mild s [place] canal narrowing. L4-5: There is moderate circumferential disc bulge with superimposed right lateral/foraminal componen t and advanced bilateral facet arthropathy resulting in moderate right and [id number] left neur al foraminal narrowing and moderate spinal canal narrowing. Central disc annular fissure is noted. L5-S1: Moderate disc height loss with broad-based posterior disc bulge and advanced bilateral facet a rthropathy resulting in moderate bilateral neural foraminal narrowing, with minimal spinal canal narr owing. Impression: Multilevel lumbar spondylosis, worst at L4-5 and L5-S1. Reported By:
== END | disposition home or self-care (01) | DRG 552 ==
LOC: RAD 15:23
PROVIDERS: ATTEND Obstetrics & Gynecology Obstetrics
DX: M54.16 Radiculopathy, lumbar region (principal); M47.897 Other spondylosis, lumbosacral region
CPT/HCPCS: 72148

== ENCOUNTER 2019-03-24 08:58 | Observation (INO) ==
--- NOTE | 2019-03-24 10:00 | DR.GENAD ---
HPI Time Seen Time Seen by Provider: 03/24/19 09:56 PCP Primary Care Physician: RAUL SINCLAIR HPI Comment HPI Comment: PATIENT IS 69YR OLD FEMALE IN THE EMERGENCY ROOM WITH FEVER AND ATAXIA NOTED THIS AM. JUST FINISH 10 DAYS OF ANTIBIOTIC FOR SINUS INFECTION. NO FEVER OR HEADACHE. SOME ABDOMINAL PAIN 5/10 SHARP PAIN EPIGATRIC AREA RADIATING TO THE BACK. NO DYSURIA. Complaint/Symptoms Chief Complaint Doctors Comments: UNSTEADY AND DIZZY NOTED TODAY. Chief Complaint:: PT C/O BEING DIZZY AND UNSTEADY ( VERTIGO) PT RECENT DX WITH SINUS INFECTION, PUT JUST FINISHED SOME ABX, AND SHE STATES " I ATE A BANNANA" Nurses notes reviewed Nurses Notes Review: Yes Source History Provided: Patient Mode of Arrival Mode of Arrival: Ambulatory Timing Onset of Chief Complaint: 03/24/19 Came on: Suddenly Duration Duration: Constant Duration: Hours and Days Severity Severity: Moderate Modifying Factors Worsens:: MOVEMENT Improves:: REST. Associated Signs and Symptoms Associated Signs and Symptoms: DIZZINESS, ATAXIA. Other History Other History: RECENT SINUS INFECTION. PMH PMH Past Medical History: Yes Past Medical History: Diabetes and Hypertension Past Surgical History: Yes Surgical History: Other Family History History of Family Medical Conditions: No Family Medical History: Cancer, Coronary Artery Disease and Hypertension Social History Does patient currently use any type of tobacco product: No Have you used tobacco products in the last 12 months: No Type of Tobacco Use: None Does any household member use tobacco: No Alcohol Use: None Do you use any recreational Drugs:: No Lives With: Family Lives Where: Home infectious screening In the last 2 months have you had wt loss of >10#?: NO Have you had fever, night sweats or hemotysis?: No Have you traveled outside the country in the last 6 months?: No Isolation: Standard ROS Review of Systems Constitutional: See HPI, Weakness and Fatigue; negative Fever Eyes: No Symptoms Reported and See HPI ENTM: See HPI and Nose Congestion; negative Ear Pain, Nose Discharge and Throat Pain Respiratoy: No Symptoms Reported and See HPI; negative Moist Cough, Short of Breath and Wheezing Cardiovascular: No Symptoms Reported and See HPI; negative Chest Pain, Edema and Palpitations Gastrointestinal/Abdominal: See HPI and Abdominal Pain; negative Constipation, Diarrhea, Nausea and Vomiting Genitourinary: No Symptoms Reported and See HPI; negative Dysuria, Frequency, Hematuria and Pain Neurological: No Symptoms Reported, See HPI, Weakness, Dizziness and Other (ATAXIA.); negative Headache Musculoskeletal: See HPI and Muscle Pain; negative Back Pain Integumentary: No Symptoms Reported and See HPI; negative Change in Color, Rash and Juandice Hematologic/Lymphatic: No Symptoms Reported and See HPI; negative Anemia, Easy Bruising and Swollen Glands Endocrine: No Symptoms Reported and See HPI; negative Unexplained Weight Gain, Unexplained Weight Loss and Decreased Appetite Psychiatric: No Symptoms Reported and See HPI All Other Systems: Reviewed and Negative PE Vital Signs Vitals: Temperature 98 F Pulse Rate 79 Respiratory Rate 18 Blood Pressure [Right Arm] 121/83 Blood Pressure 178/85 O2 Sat by Pulse Oximetry 100 General Limitations: No Limitations General Appearance: Alert and In No Apparent Distress Head Head Exam: Normal Inspection and Atraumatic Eyes Eye exam: Normal Appearance, PERRL and EOMI; negative Scleral Icterus and Conjunctival Injection ENT ENT Exam: Normal Exam, Normal Oropharynx, Normal External Ear Exam and TM's Normal Bilaterally External Ear Exam: Normal External Inspection; negative Mastoid Tenderness, Pain with Movement and External Tenderness TM/Canal Exam: Bilateral: Normal Nose Exam: Normal Nose Exam; negative Sinus Tenderness, Nasal Deviation and Septal Hematoma Mouth Exam: Normal Inspection; negative Lip Swelling and Tongue Swelling Throat Exam: Normal Inspection; negative Tonsillar Erythema, Tonsillomegaly and Tonsillar Exudate Neck Neck Exam: Normal Inspection and Trachea Midline; negative Tenderness and Lymphadenopathy Chest Chest Inspection: Normal Inspection and Symmetric Chest Wall Rise; negative Tenderness Respiratory Respiratory Exam: Normal Lung Sounds Bilat; negative Accessory Muscle Use, Chest Wall Tenderness and Respiratory Distress Respiratory Exam: Bilateral: Clear to Auscultation Cardiovascular Cardiovascular Exam: Regular Rate, Normal Rhythm and Normal Heart Sounds; negative Systolic Murmur and Diastolic Murmur Abdominal Exam Abdominal Exam: Normal Bowel Sounds, Soft and Tenderness Abdominal Tenderness: Epigastrium and Moderate Extremities Extremities Exam: Normal Inspection and Normal Capillary Refill; negative T enderness, Edema and Calf Tenderness Back Back Exam: Normal Inspection; negative Tenderness, (R) CVA Tenderness, (L) CVA Tenderness, Paraspinal Tenderness and Vertebral Tenderness Neurologic Neurological Exam: Alert, Oriented X3 and CN II-XII Intact; negative Motor Sensory Deficit Psychiatric Psychiatric Exam: Normal Affect and Normal Mood Skin Skin Exam: Warm, Dry, Intact and Normal Color MDM Differential Diagnosis Differential Diagnosis: DIZZINESS, ATAXIA, SINUSITIS, VERTIGO, ABDOMINAL PAIN, UTI. COURSE Treatment Treatment: SEE ORDERS. Consultation Consultation Comments: DR CARTER WILL ADMIT PATIENT. Education/Counseling Education/Counseling: Patient Educated On: Diagnosis and Needs for Follow Up ROR Labs Reviewed Laboratory Results Reviewed?: Yes Result Diagrams: 03/26/19 05:34 03/26/19 05:34 Laboratory: WBC 3.5 X10^3/uL (3.6-10.0) L 03/24/19 10:09 RBC 4.59 X10^6/uL (3.5-5.4) 03/24/19 10:09 Hgb 12.9 g/dL (12.0-16.0) 03/24/19 10:09 Hct 39.4 % (36.0-47.0) 03/24/19 10:09 MCV 85.8 fL (80.0-100.0) 03/24/19 10:09 MCH 28.1 pg (27.0-34.0) 03/24/19 10:09 MCHC 32.8 g/dL (33.0-35.0) L 03/24/19 10:09 RDW 14.8 % (11.6-16.5) 03/24/19 10:09 Plt Count 284 X10^3/uL (150.0-450.0) 03/24/19 10:09 MPV 8.0 fL (7.4-11.0) 03/24/19 10:09 Neut % (Auto) 39.5 % (42.0-75.0) L 03/24/19 10:09 Lymph % (Auto) 45.3 % (21.0-51.0) 03/24/19 10:09 [place] % (Auto) 9.5 % (0.0-13.0) 03/24/19 10:09 Eos % (Auto) 2.4 % (0.9-2.9) 03/24/19 10:09 Baso % (Auto) 3.3 % (0.2-1.0) H 03/24/19 10:09 Neut # (Auto) 1.4 x10^3/uL (2.2-4.8) L 03/24/19 10:09 Lymph # (Auto) 1.6 X10^3/uL (1.3-2.9) 03/24/19 10:09 [place] # (Auto) 0.3 x10^3/uL (0.3-0.8) 03/24/19 10:09 Eos # (Auto) 0.1 x10^3/uL (0.0-0.2) 03/24/19 10:09 Baso # (Auto) 0.1 X10^3/uL (0.0-0.1) 03/24/19 10:09 Absolute Nucleated RBC 0.2 /100WBC 03/24/19 10:09 Sodium 142 mmol/L (136-145) 03/24/19 10:09 Corrected Sodium 145 mmol/L (136-145) 03/24/19 10:09 Potassium 3.9 mmol/L (3.5-5.1) 03/24/19 10:09 Chloride 106 mmol/L (98-107) 03/24/19 10:09 Carbon Dioxide 26.8 mmol/L (21-32) 03/24/19 10:09 BUN 9 mg/dL (7-18) 03/24/19 10:09 Creatinine 0.90 mg/dL (0.55-1.02) 03/24/19 10:09 Est GFR (MDRD) Af Amer > 60 (>60) 03/24/19 10:09 Est GFR (MDRD) Non-Af > 60 (>60) 03/24/19 10:09 Glucose 218 mg/dL (65-99) H 03/24/19 10:09 Calcium 9.4 mg/dL (8.5-10.1) 03/24/19 10:09 Corrected Calcium 10.0 mg/dL (8.5-10.1) 03/24/19 10:09 Total Bilirubin 0.30 mg/dL (0.2-1.0) 03/24/19 10:09 AST 14 Units/L (15-37) L 03/24/19 10:09 ALT 21 Units/L (12-78) 03/24/19 10:09 Alkaline Phosphatase 77 Units/L (46-116) 03/24/19 10:09 Total Protein 6.8 g/dL (6.4-8.2) 03/24/19 10:09 Albumin 3.2 g/dL (3.4-5.0) L 03/24/19 10:09 Globulin 3.6 g/dL (2.5-4.5) 03/24/19 10:09 Albumin/Globulin Ratio 0.9 Ratio (1.1-2.1) L 03/24/19 10:09 Specimen Type Clean catch urine 03/24/19 10:36 Urine Color Dark yellow (YELLOW) 03/24/19 10:36 Urine Appearance Hazy (CLEAR) 03/24/19 10:36 Urine pH 5.0 (5.0 - 8.0) 03/24/19 10:36 Ur Specific [place] 1.025 (1.000-1.030) 03/24/19 10:36 Urine Protein Negative (NEGATIVE) 03/24/19 10:36 Urine Glucose (UA) 3+ (NEGATIVE) 03/24/19 10:36 Urine Ketones Negative (NEGATIVE) 03/24/19 10:36 Urine Occult Blood 1+ (NEGATIVE) 03/24/19 10:36 Urine Nitrite Negative (NEGATIVE) 03/24/19 10:36 Urine Bilirubin Negative (NEGATIVE) 03/24/19 10:36 Urine Urobilinogen Normal (NORMAL) 03/24/19 10:36 Ur Leukocyte Esterase 2+ (NEGATIVE) 03/24/19 10:36 Urine RBC 0-2 /HPF (0-3) 03/24/19 10:36 Urine WBC 0-2 /HPF (0-5) 03/24/19 10:36 Ur Squamous Epith Cells Few /HPF (NEGATIVE) 03/24/19 10:36 Urine Bacteria Negative /HPF (NEGATIVE) 03/24/19 10:36 Ur Culture Indicated? No/not indicated 03/24/19 10:36 XRAY XRAY Interpreted by: Radiologist XRAY Findings: REPORT NOTED AND DISCUSSED WITH PATIENT. EKG Rate: 68 [place]: Normal Rhythm: NSR Block: None Hypertrophy: None ST: Nonsp (LOW VOLTAGE.) Opioid Opioid Risk Tool Age (Angel box if 16-45): No History of Preadolescent Sexual Abuse: No Total: 0 Total Score Risk Category: Low Risk Copyright: Jono UMANA predicting aberrant behaviors Diagnosis Discharge Problem: Dizziness, Acute hypokalemia, Vertigo Instructions Instructions: Type 2 Diabetes Mellitus, Diagnosis, Adult Sinusitis, Adult, [id number] Preventing Hypertension Vertigo, [id number] Type 2 Diabetes Mellitus, Self Care, Adult, [id number] Hypertension, [id number] Dizziness, [id number] Managing Your Hypertension Forms: Excuse From Work Patient Portal
[2019-03-24] MEDS ORDERED: ANTIVERT TAB 25 MG PO ONE (10:23)
[2019-03-24] MEDS ORDERED: ANTIVERT TAB 25 MG ONE (10:25)
[2019-03-24 10:29] LABS: BASOPHILS # (AUTO) 0.1 X10^3/uL (0.0-0.1); BASOPHILS % (AUTO) 3.3 % (0.2-1.0); EOSINOPHILS # (AUTO) 0.1 x10^3/uL (0.0-0.2); EOSINOPHILS % (AUTO) 2.4 % (0.9-2.9); HEMATOCRIT 39.4 % (36.0-47.0); HEMOGLOBIN 12.9 g/dL (12.0-16.0); LYMPHOCYTES # (AUTO) 1.6 X10^3/uL (1.3-2.9); LYMPHOCYTES % (AUTO) 45.3 % (21.0-51.0); MEAN CORPUSCULAR HEMOGLOBIN 28.1 pg (27.0-34.0); MEAN CORPUSCULAR HGB CONC 32.8 g/dL (33.0-35.0); MEAN CORPUSCULAR VOLUME 85.8 fL (80.0-100.0); MONOCYTES # (AUTO) 0.3 x10^3/uL (0.3-0.8); MONOCYTES % (AUTO) 9.5 % (0.0-13.0); NEUTROPHILS # (AUTO) 1.4 x10^3/uL (2.2-4.8); NEUTROPHILS % (AUTO) 39.5 % (42.0-75.0); PLATELET COUNT 284 X10^3/uL (150.0-450.0); RED BLOOD COUNT 4.59 X10^6/uL (3.5-5.4); RED CELL DISTRIBUTION WIDTH 14.8 % (11.6-16.5); WHITE BLOOD COUNT 3.5 X10^3/uL (3.6-10.0)
[2019-03-24 10:43] LABS: ALANINE AMINOTRANSFERASE 21 Units/L (12-78); ALBUMIN 3.2 g/dL (3.4-5.0); ALKALINE PHOSPHATASE 77 Units/L (46-116); ASPARTATE AMINO TRANSFERASE 14 Units/L (15-37); BLOOD UREA NITROGEN 9 mg/dL (7-18); CALCIUM 9.4 mg/dL (8.5-10.1); CARBON DIOXIDE 26.8 mmol/L (21-32); CHLORIDE 106 mmol/L (98-107); COR NA(FOR HYPERGLY) 145 mmol/L (136-145); SODIUM 142 mmol/L (136-145); TOTAL PROTEIN 6.8 g/dL (6.4-8.2); eGFR NON BLACK RACES > 60 (>60)
[2019-03-24 10:50] LABS: BILIRUBIN,URINE NEGATIVE (NEGATIVE); BLOOD/HEMOGLOBIN,URINE 1+ (NEGATIVE); GLUCOSE, URINE 3+ (NEGATIVE); KETONES,URINE NEGATIVE (NEGATIVE); LEUKOCYTE ESTERASE ,URINE 2+ (NEGATIVE); NITRITES,URINE NEGATIVE (NEGATIVE); PROTEIN,URINE NEGATIVE (NEGATIVE); UROBILINOGEN,URINE NORMAL (NORMAL)
--- NOTE | 2019-03-24 11:00 | RAD ---
HISTORY: Vertigo and cough Study: PA and lateral views of the chest. Comparison: None. Findings: The cardiomediastinal silhouette is normal. No focal consolidations, pleural effusions or pneumothorax. Osseous structures demonstrate no acute abnormality. IMPRESSION: 1. No acute cardiopulmonary process. Reported By:
[2019-03-24 11:01] LABS: APPEARANCE,URINE HAZY (CLEAR); BACTERIA,URINE NEGATIVE /HPF (NEGATIVE); COLOR,URINE DARK YELLOW (YELLOW); RBC,URINE 0-2 /HPF (0-3); SQUAMOUS EPITHELIAL CELL,UR FEW /HPF (NEGATIVE)
--- NOTE | 2019-03-24 11:02 | CT ---
HEAD CT WITHOUT IV CONTRAST CLINICAL INDICATION: Vertigo TECHNIQUE: Axial CT images from skull base to vertex without IV contrast.Dose reduction techniques including Automated Exposure Control (AEC) and adjustment of mA and kV were utlized. COMPARISON: None FINDINGS: Diffuse patchy and confluent white matter hypoattenuation with associated volume loss. There is no evidence of acute infarction, intracranial hemorrhage, mass or mass effect, or abnormal extra-axial collection. The density of the larger dural venous sinuses is normal. Age-related, ex-vacuo dilatation of the ventricles and sulci. The skull base and calvarium are normal. There is patchy opacity [place] of the ethmoid air cells, mastoid air cells (more notable on the right) and left maxillary sinus. IMPRESSION: 1. No acute intracranial abnormality. 2. Extensive sinus disease including the mastoid air cells on the right as above. Correlate clinically. Reported By:
[2019-03-24] MEDS ORDERED: ROCEPHIN VIAL 1 GRAM 1 G in NS 100 ML IV + SPIKE MINIBAG* 100 ML IV ONE (12:09)
[2019-03-24] MEDS: NS 1000 ML 1,000 ML IV SCH ×2 (15:15→23:40)
[2019-03-24] MEDS: BUMEX TAB 1 MG PO SCH ×2 (15:16→21:40)
[2019-03-24 15:31] VITALS: BMI 28.5
[2019-03-25] MEDS: NS 1000 ML 1,000 ML IV SCH ×5 (00:10→21:04)
[2019-03-25] MEDS: ROCEPHIN VIAL 1 GRAM 1 G in NS 100 ML IV + SPIKE MINIBAG* 100 ML IV SCH ×2 (01:15→08:47)
[2019-03-25] MEDS: BUMEX TAB 1 MG PO SCH ×3 (05:32→21:04)
[2019-03-25 06:31] LABS: BASOPHILS # (AUTO) 0.1 X10^3/uL (0.0-0.1); BASOPHILS % (AUTO) 1.6 % (0.2-1.0); EOSINOPHILS # (AUTO) 0.1 x10^3/uL (0.0-0.2); EOSINOPHILS % (AUTO) 2.3 % (0.9-2.9); HEMATOCRIT 38.9 % (36.0-47.0); LYMPHOCYTES # (AUTO) 2.8 X10^3/uL (1.3-2.9); LYMPHOCYTES % (AUTO) 63.1 % (21.0-51.0); MEAN CORPUSCULAR HEMOGLOBIN 28.4 pg (27.0-34.0); MEAN CORPUSCULAR HGB CONC 33.3 g/dL (33.0-35.0); MEAN CORPUSCULAR VOLUME 85.2 fL (80.0-100.0); MEAN PLATELET VOLUME 7.8 fL (7.4-11.0); MONOCYTES # (AUTO) 0.4 x10^3/uL (0.3-0.8); MONOCYTES % (AUTO) 9.6 % (0.0-13.0); NEUTROPHILS % (AUTO) 23.4 % (42.0-75.0); PLATELET COUNT 296 X10^3/uL (150.0-450.0); RED BLOOD COUNT 4.56 X10^6/uL (3.5-5.4); RED CELL DISTRIBUTION WIDTH 14.9 % (11.6-16.5); WHITE BLOOD COUNT 4.4 X10^3/uL (3.6-10.0)
[2019-03-25 06:34] LABS: ALANINE AMINOTRANSFERASE 18 Units/L (12-78); ALBUMIN 2.9 g/dL (3.4-5.0); ALKALINE PHOSPHATASE 70 Units/L (46-116); ASPARTATE AMINO TRANSFERASE 21 Units/L (15-37); BLOOD UREA NITROGEN 5 mg/dL (7-18); CALCIUM 8.9 mg/dL (8.5-10.1); CARBON DIOXIDE 26.2 mmol/L (21-32); CHLORIDE 108 mmol/L (98-107); COR CA(FOR HYPOALB) 9.8 mg/dL (8.5-10.1); CREATININE 0.88 mg/dL (0.55-1.02); SODIUM 144 mmol/L (136-145); TOTAL PROTEIN 6.5 g/dL (6.4-8.2); eGFR NON BLACK RACES > 60 (>60)
[2019-03-25 07:04] LABS: PLATELET MORPHOLOGY COMMENT NORMAL (NORMAL)
[2019-03-25] MEDS: FLONASE NASAL SPRAY ENOSTRIL SCH (08:48)
[2019-03-25] MEDS: LOVENOX INJ 40 MG SYR SC SCH (10:40)
[2019-03-26] MEDS: NS 1000 ML 1,000 ML IV SCH ×3 (02:23→10:24)
[2019-03-26 04:51] VITALS: BP 140/86
[2019-03-26] MEDS: BUMEX TAB 1 MG PO SCH (05:41)
[2019-03-26 06:30] LABS: BASOPHILS # (AUTO) 0.1 X10^3/uL (0.0-0.1); BASOPHILS % (AUTO) 1.5 % (0.2-1.0); EOSINOPHILS # (AUTO) 0.1 x10^3/uL (0.0-0.2); EOSINOPHILS % (AUTO) 2.5 % (0.9-2.9); HEMOGLOBIN 13.2 g/dL (12.0-16.0); LYMPHOCYTES # (AUTO) 2.9 X10^3/uL (1.3-2.9); LYMPHOCYTES % (AUTO) 62.6 % (21.0-51.0); MEAN CORPUSCULAR HEMOGLOBIN 28.1 pg (27.0-34.0); MEAN CORPUSCULAR VOLUME 85.3 fL (80.0-100.0); MONOCYTES # (AUTO) 0.4 x10^3/uL (0.3-0.8); NEUTROPHILS # (AUTO) 1.1 x10^3/uL (2.2-4.8); NEUTROPHILS % (AUTO) 24.4 % (42.0-75.0); PLATELET COUNT 287 X10^3/uL (150.0-450.0); RED BLOOD COUNT 4.69 X10^6/uL (3.5-5.4); RED CELL DISTRIBUTION WIDTH 14.9 % (11.6-16.5); WHITE BLOOD COUNT 4.6 X10^3/uL (3.6-10.0)
[2019-03-26 06:37] LABS: BLOOD UREA NITROGEN 6 mg/dL (7-18); CARBON DIOXIDE 25.2 mmol/L (21-32); CHLORIDE 106 mmol/L (98-107); COR NA(FOR HYPERGLY) 143 mmol/L (136-145); CREATININE 0.85 mg/dL (0.55-1.02); SODIUM 142 mmol/L (136-145); eGFR NON BLACK RACES > 60 (>60)
[2019-03-26 07:01] LABS: PLATELET MORPHOLOGY COMMENT NORMAL (NORMAL)
[2019-03-26] MEDS: FLONASE NASAL SPRAY ENOSTRIL SCH (09:30)
[2019-03-26] MEDS: ROCEPHIN VIAL 1 GRAM 1 G in NS 100 ML IV + SPIKE MINIBAG* 100 ML IV SCH (09:47)
[2019-03-26] MEDS: LOVENOX INJ 40 MG SYR SC SCH (09:48)
== END 2019-03-26 11:55 | disposition home or self-care (01) ==
LOC: ER 09:03 → MED/SURG 09:03
PROVIDERS: ADMIT Obstetrics & Gynecology Obstetrics; ATTEND Obstetrics & Gynecology Obstetrics
DX: Z79.899 Other long term (current) drug therapy; H70.001 Acute mastoiditis without complications, right ear; J01.40 Acute pansinusitis, unspecified; R42 Dizziness and giddiness; I10 Essential (primary) hypertension; E11.65 Type 2 diabetes mellitus with hyperglycemia
CPT/HCPCS: 36415; 70450; 71020; 71046; 80048; 80053; 81001; 85025; 93005; 94760; 96360; 96361; 96365; 96372; 96374; 96375; 99284; A4222; G0378; J0696; J1650; J7030; J7050